=== PATIENT | female | born 1945 | race Caucasian/White ===

== ENCOUNTER 2016-09-02 16:44 | Emergency (ER) | payer OTHER ==
[2016-09-02 18:22] VITALS: BP 136/96
--- NOTE | 2016-09-02 18:45 | UC ---
Truncal Trauma HPI - HPI Summary HPI Summary: LEFT SIDE RIB PAIN X 8 DAYS INJURY TO HER LEFT RIBS SHE HIT HER LEFT SIDE TO THE BATH TUB INCREASE PAIN WITH BREATHING, BETTER WITH REST NO SOB, NO COUGH - History Of Current Complaint Chief Complaint: UCChestPain Stated Complaint: LEFT SIDE BRUISED POST FALL ON 08/25 Time Seen by Provider: 09/02/16 18:07 Hx Obtained From: Patient Onset/Duration: Sudden Onset, Lasting Days - 8, Still Present Severity Initially: Moderate Severity Currently: Moderate Mechanism Of Injury: Blunt Trauma Aggravating Factor(s): Movement, Deep Breathing Alleviating factor(s): Rest Associated Signs And Symptoms: Negative: SOB, Chest Pain, Cough, Hematuria, Abdominal Pain, Fever, Nausea, Vomiting - Allergies/Home Medications Allergies/Adverse Reactions: Allergies Allergy/AdvReac Type Severity Reaction Status Date / Time Erythromycin Allergy Severe Itching Verified 09/02/16 18:22 Amoxicillin Allergy Intermediate Rash Verified 10/23/12 17:38 Morphine Allergy Intermediate Rash Verified 10/23/12 17:38 Home Medications: Home Medications Atorvastatin* [Lipitor*] 10 mg PO 2100 09/02/16 [History Confirmed 09/02/16] Brimonidine/Timolol OPTH(NF) [Combigan OPHTH (NF)] 1 drop BOTH EYES Q12H [History Confirmed 09/02/16] Cholecalciferol [Vitamin D] 1,000 unit PO DAILY 09/02/16 [History Confirmed 04/09] Dulaglutide [Trulicity] 0.75 mg SC WEEKLY 09/02/16 [History Confirmed 09/02/16] Insulin Glargine [Toujeo Solostar] 20 unit SC QPM 09/02/16 [History Confirmed ] Latanoprost 0.005% OPTH (NF) [Xalatan 0.005% OPTH (NF)] 1 drop .SEE ORDER SEE INSTRUCTIONS 09/02/16 [History Confirmed 09/02/16] Multivitamins/Minerals TAB* [Thera M Plus TAB*] 1 tab PO DAILY 09/02/16 [ History Confirmed 09/02/16] PARoxetine HCL TAB* [Paxil TAB*] 20 mg PO QPM 09/02/16 [History Confirmed ] glipiZIDE TAB* [Glucotrol TAB*] 5 mg PO DAILY 09/02/16 [History Confirmed ] metFORMIN* [Glucophage 1000 MG TAB *] 1,000 mg PO BID 09/02/16 [History Confirmed 09/02/16] PMH/Surg Hx/FS Hx/Imm Hx Cardiovascular History Of: Reports: Hypertension - Surgical History Surgical History: None Surgery Procedure, Year, and Place: c-spine, both shoulders - Family History Known Family History: Positive: Hypertension - Social History Alcohol Use: None Substance Use Type: None Smoking Status (MU): Former Smoker When Did the Patient Quit Smoking/Using Tobacco: 53 yrs Review of Systems Constitutional: Negative Skin: Negative Eyes: Negative ENT: Negative Respiratory: Negative Cardiovascular: Negative Gastrointestinal: Negative All Other Systems Reviewed And Are Negative: Yes Physical Exam Triage Information Reviewed: Yes Appearance: Well-Appearing, No Pain Distress, Well-Nourished Vital Signs: Initial Vital Signs Temp 97.9 F 09/02/16 18:10 Pulse 77 09/02/16 18:10 Resp 18 09/02/16 18:10 BP 136/96 09/02/16 18:10 Pulse Ox 100 09/02/16 18:10 Vital Signs Reviewed: Yes Eyes: Positive: Conjunctiva Clear ENT: Positive: Normal ENT inspection, Hearing grossly normal, Pharynx normal Neck exam: Normal Neck: Positive: Supple, Nontender Respiratory: Positive: Lungs clear, Normal breath sounds, No respiratory distress, No accessory muscle use, Other: - TENDERNESS LEFT RIBS Cardiovascular: Positive: RRR, No Murmur, Pulses Normal Abdominal Exam: Normal Abdomen Description: Positive: Nontender Bowel Sounds: Positive: Present Truncal Trauma Course/Dx - Differential Dx/Diagnosis Provider Diagnoses: RIB FRACTURE Discharge - Discharge Plan Condition: Stable Disposition: HOME Patient Education Materials: Rib Fracture (ED) Referrals: Jack Perez MD [Primary Care Provider] - 7 Days
--- NOTE | 2016-09-02 19:08 | RAD ---
Indication: Mid lateral LEFT rib pain for one week with deep inspiration. Fall onto LEFT ribs one week ago. Pain radiates into the anterior LEFT lower ribs. Comparison: None. Technique: 4 view LEFT unilateral rib series. Report: Grossly nondisplaced fractures of the lateral LEFT sixth, seventh, and eighth ribs noted. No pleural effusion or pneumothorax evident. Clear lungs. The heart, pulmonary vasculature, and mediastinal contours are unremarkable. Anterior cervical fusion hardware. Gallbladder fossa level surgical clips. IMPRESSION: Grossly nondisplaced fractures of the lateral LEFT sixth, seventh, and eighth ribs. Negative for pneumothorax.
== END 2016-09-02 19:17 | disposition home or self-care (01) ==
LOC: UCCORT 16:44
DX: S22.42XA Multiple fractures of ribs, left side, initial encounter for closed fracture (principal); W22.09XA Striking against other stationary object, initial encounter; Y93.9 Activity, unspecified; Y92.002 Bathroom of unspecified non-institutional (private) residence as the place of occurrence of the external cause; I10 Essential (primary) hypertension; Z88.1 Allergy status to other antibiotic agents; Z88.5 Allergy status to narcotic agent; Z87.891 Personal history of nicotine dependence
CPT/HCPCS: 99202; G0463

== ENCOUNTER 2021-03-02 07:35 | Observation (INO) ==
[~2021-03-02 07:35] MED LIST: Buffered Lidocaine 1% SYRIN 1 ml INTRADERM ONE; Lactated Ringers 1000 ml BAG 1,000 ML IV SCH
[2021-03-02] MEDS ORDERED: ceFAZolin 2 GM in NS PREMIX 2 GM/100 ML BAG IVPB ONE (07:49)
[2021-03-02] MEDS ORDERED: Lidocaine 2% PF 5 ML VIAL ONE (07:50)
[2021-03-02] MEDS ORDERED: fentaNYL 100 mcg/2 ml 50 MCG/ML VIAL ONE ×2 (07:51→09:24)
[2021-03-02] MEDS ORDERED: Midazolam 2 mg/2 ml VIAL 1 mg/ml 2 ml VIAL (2 mg) ONE (07:51)
[2021-03-02] MEDS ORDERED: DiMENhydriNATE IV 50 mg/ml 1 ml VIAL IV PUSH PRN (08:46)
[2021-03-02] MEDS ORDERED: Ondansetron 4 mg VIAL 2 MG/ML 2 ml VIAL IV PRN ×2 (08:46→11:01)
[2021-03-02] MEDS ORDERED: fentaNYL 100 mcg/2 ml 50 MCG/ML VIAL IV PRN (08:46)
[2021-03-02] MEDS ORDERED: HYDROmorphone 1 MG/1 ML SYRINGE IV PRN (08:46)
[2021-03-02] MEDS ORDERED: Naloxone 0.4 mg VIAL 0.4 mg/ml 1 ml VIAL IV PRN (08:46)
[2021-03-02] MEDS ORDERED: Acetaminophen IV 1 GM/100ML 100 ML IV ONE (08:46)
[2021-03-02] MEDS ORDERED: Ropivacaine 5 MG/ML 20 ML VIAL 0.5% (100 MG) ONE (08:49)
[2021-03-02] MEDS ORDERED: Propofol 10 mg/ml 100 ML BTL 100 ML ONE (08:54)
[2021-03-02] MEDS ORDERED: Dexamethasone IV 4 MG/ML VIAL 1 ml VIAL ONE (09:24)
[2021-03-02] MEDS ORDERED: ROPIVACAINE 5 MG/ML 30 ML BTL (0.5%) ONE (09:26)
[2021-03-02] MEDS ORDERED: diPHENhydraMINE IV 50 MG/ML 1 ml VIAL (BENADRYL) ONE (10:12)
[2021-03-02] MEDS ORDERED: Ondansetron 4 mg VIAL 2 MG/ML 2 ml VIAL ONE (10:12)
[2021-03-02] MEDS ORDERED: Furosemide 20 mg/2 ml IV VIAL ONE (10:27)
[2021-03-02] MEDS ORDERED: diPHENhydraMINE 25 mg TAB PO PRN (11:01)
[2021-03-02] MEDS ORDERED: Magnesium Hydroxide LIQ 30 ML UDC PO PRN (11:01)
[2021-03-02] MEDS ORDERED: diPHENhydraMINE IV 50 MG/ML 1 ml VIAL (BENADRYL) IV PRN (11:01)
[2021-03-02] MEDS ORDERED: Lactulose 30 ml UDC PO PRN (11:01)
[2021-03-02] MEDS ORDERED: Ondansetron ODT 4 mg TAB 4 MG TAB PO PRN (11:01)
[2021-03-02] MEDS ORDERED: HYDROmorphone 1 MG/1 ML SYRINGE IV SLOW PU PRN (11:06)
[2021-03-02] MEDS ORDERED: Dextrose 50% Syringe 50 ml 25 GM/50 ML SYRINGE IV PUSH PRN (14:02)
[2021-03-02] MEDS: Lactated Ringers 1000 ml BAG 1,000 ML IV SCH (14:45)
[2021-03-02] MEDS: Clindamycin 600 MG/D5W BAG 600 MG/50 ML BAG IV SCH (18:00)
[2021-03-02] MEDS: Magnesium Hydroxide LIQ 30 ML UDC PO SCH (23:06)
[2021-03-03] MEDS: Lactated Ringers 1000 ml BAG 1,000 ML IV SCH (01:15)
[2021-03-03] MEDS: Clindamycin 600 MG/D5W BAG 600 MG/50 ML BAG IV SCH ×2 (03:30→09:49)
[2021-03-03 05:49] LABS: Hematocrit 33 % (35-47); Hemoglobin 11.1 g/dL (12.0-16.0); Mean Platelet Volume 8.8 fL (7.4-10.4); Platelet Count 184 10^3/uL (150-450)
[2021-03-03 06:05] LABS: Calcium 9.1 mg/dL (8.6-10.3); Potassium 4.8 mmol/L (3.5-5.0)
[2021-03-03] MEDS ORDERED: Cholecalciferol (VIT D3) 1,000 unit TAB PO SCH (09:00)
[2021-03-03] MEDS ORDERED: Insulin GLARGINE 100 un/ml 10 ml VIAL SUBCUT SCH (09:00)
[2021-03-03] MEDS ORDERED: Vitamin THERAPEUTIC TAB PO SCH (09:00)
[2021-03-03] MEDS ORDERED: Timolol 0.25% OPHTH.SOLN BTL LEFT EYE SCH (09:00)
[2021-03-03] MEDS ORDERED: Potassium Chlor 20 meq TAB.ER PO SCH (09:00)
[2021-03-03] MEDS ORDERED: Aspirin EC 81 mg TAB.EC (enteric coated) PO SCH (09:00)
[2021-03-03] MEDS: Magnesium Hydroxide LIQ 30 ML UDC PO SCH (09:24)
[2021-03-03 11:24] VITALS: BP 142/75
== END 2021-03-03 14:50 | disposition home or self-care (01) ==
LOC: SSU 07:35 → OR 07:35
PROVIDERS: ADMIT Orthopaedic Surgery Adult Reconstructive Orthopaedic Surgery; ATTEND Orthopaedic Surgery Adult Reconstructive Orthopaedic Surgery

== ENCOUNTER 2024-04-01 05:31 | Observation (INO) ==
[~2024-04-01 05:31] MED LIST changes: -Buffered Lidocaine 1% SYRIN 1 ml INTRADERM ONE; -Lactated Ringers 1000 ml BAG 1,000 ML IV SCH; +Lidocaine 1% w EPI 1:100,000 MDV 50 ML VIAL ONE; +NS 0.45% 1000 ml BAG 1,000 ML IV SCH; +Naloxone 0.4 mg VIAL 0.4 mg/ml 1 ml VIAL IV PRN; +ceFAZolin VIAL VIAL ONE; +fentaNYL 100 mcg/2 ml 50 MCG/ML VIAL IV PRN
[2024-04-01] MEDS ORDERED: Chlorhexidine MOUTHWASH 0.12% 15 ML UDC ONE (05:46)
[2024-04-01] MEDS ORDERED: ceFAZolin 2 GM PREMIX 2 GM/50 ML BAG ONE (06:01)
[2024-04-01 06:11] LABS: Rapid COVID-19 Molecular Undetected (Undetected)
[2024-04-01] MEDS ORDERED: Rocuronium 50 mg VIAL 10 mg/ml 5 ml VIAL (50 mg) ONE (07:03)
[2024-04-01] MEDS ORDERED: fentaNYL 100 mcg/2 ml 50 MCG/ML VIAL ONE (07:05)
[2024-04-01] MEDS ORDERED: Midazolam 2 mg/2 ml VIAL 1 mg/ml 2 ml VIAL (2 mg) ONE (07:06)
[2024-04-01] MEDS ORDERED: Dexamethasone IV 4 MG/ML VIAL 1 ml VIAL ONE (07:50)
[2024-04-01] MEDS ORDERED: Ondansetron 4 mg VIAL 2 MG/ML 2 ml VIAL ONE ×2 (07:50→09:57)
[2024-04-01] MEDS ORDERED: Propofol 10 MG/ML 20 ML BTL ONE (07:50)
[2024-04-01] MEDS: Buffered Lidocaine 1% SYRIN 1 ml INTRADERM ONE (08:51)
[2024-04-01] MEDS: Acetaminophen IV 1 GM/100ML 1,000 MG/100 ML BAG IV ONE (08:51)
[2024-04-01] MEDS: Scopolamine 1 mg/72hr PATCH TRANSDERM ONE (08:51)
[2024-04-01] MEDS: Lactated Ringers 1000 ml BAG 1,000 ML IV SCH ×2 (08:52→11:05)
[2024-04-01] MEDS ORDERED: Senna TAB 8.6 mg TAB PO PRN (09:19)
[2024-04-01] MEDS ORDERED: Dextran 70/Hypromellose Tears Eye Drops 15 ml BTL (for Artificials Tears) BOTH EYES PRN (09:19)
[2024-04-01] MEDS ORDERED: Phenol 1.4% Throat Spray BTL MT PRN (09:19)
[2024-04-01] MEDS ORDERED: Calcium Carb (TUMS) 500 mg CHEW TAB PO PRN (09:19)
[2024-04-01] MEDS ORDERED: HYDROcodone/ACETAMIN 5/325 mg TAB PO PRN ×2 (09:19)
[2024-04-01] MEDS ORDERED: Benzocaine/Menthol LOZ MT PRN (09:19)
[2024-04-01] MEDS ORDERED: Ondansetron 4 mg VIAL 2 MG/ML 2 ml VIAL IV PRN (09:19)
[2024-04-01] MEDS ORDERED: Metoclopramide 5 MG/ML VIAL (10 mg) ONE (09:57)
[2024-04-01] MEDS: Ondansetron 4 mg VIAL 2 MG/ML 2 ml VIAL IV PRN (09:59)
[2024-04-01] MEDS: Metoclopramide 5 MG/ML VIAL (10 mg) IV PRN (09:59)
[2024-04-02] MEDS: Timolol 0.25% OPHTH.SOLN BTL BOTH EYES SCH (08:40)
[2024-04-02] MEDS: Aspirin EC 81 mg TAB.EC (enteric coated) PO SCH (08:41)
[2024-04-02] MEDS ORDERED: INSULIN DEGLUDEC 100 UNIT/ML SUBCUT SCH (09:00)
[2024-04-02] MEDS ORDERED: [UNRECOGNIZED DRUG - OTHER] SUBCUT SCH (09:00)
[2024-04-02 09:29] VITALS: BP 122/61
== END 2024-04-02 11:00 | disposition home or self-care (01) ==
LOC: OR 05:31 → SSU 05:31
PROVIDERS: ADMIT Neurological Surgery; ATTEND Neurological Surgery